=== PATIENT | female | born 2000 | race Hispanic/Latino ===

== ENCOUNTER 2020-04-13 17:56 | Emergency (ER) | payer BC, OTHER ==
[2020-04-14 16:52] LABS: SARS-CoV-2 MS2 Positive; SARS-CoV-2 N Gene Positive; SARS-CoV-2 S Gene Positive; SARS-CoV-2 orf1ab Positive
== END 2020-04-13 18:48 | disposition home or self-care (01) ==
LOC: ERS 17:56
DX: U07.1 COVID-19 (principal)
CPT/HCPCS: 87635; 99283; U0003